=== PATIENT | male | born 2005 | race Caucasian/White ===

== ENCOUNTER 2024-10-11 02:39 | Emergency (ER) | payer MEDICAID ==
[~2024-10-11] VITALS: Ht 167.6 cm; Wt 68.0 kg
[2024-10-11 03:02] VITALS: TEMP 97.7
[2024-10-11] MEDS ORDERED: IBUPROFEN 600 MG TABLET ONE (03:20)
[2024-10-11] MEDS ORDERED: ACETAMINOPHEN ES 500 MG TABLET ONE (03:20)
[2024-10-11] MEDS: ACETAMINOPHEN ES 500 MG TABLET PO ONE (03:26)
[2024-10-11] MEDS: IBUPROFEN 600 MG TABLET PO ONE (03:26)
[2024-10-11] MEDS ORDERED: IBUP-1953 PO (03:31)
[2024-10-11 03:40] VITALS: BP 120/76; O2SAT 100
== END 2024-10-11 03:41 | disposition home or self-care (01) ==
LOC: ER 02:42
DX: M94.0 Chondrocostal junction syndrome [Tietze] (principal)
CPT/HCPCS: 71045-TC

== ENCOUNTER 2025-01-25 22:15 | Emergency (ER) | payer MEDICAID ==
[~2025-01-25] VITALS: Ht 167.6 cm; Wt 72.6 kg
[2025-01-25 22:15] VITALS: BP 120/74; TEMP 98.2
[~2025-01-25 22:15] MED LIST: IBUP-1953 PO
[2025-01-25] MEDS ORDERED: TETRAcaine 5 ML BOTTLE ONE ×2 (23:16→23:43)
[2025-01-25] MEDS ORDERED: FLUORESCEIN SODIUM OPHTH 1 EA STRIP ONE ×2 (23:16→23:43)
[2025-01-25] MEDS: TETRAcaine 5 ML BOTTLE EACHEYE ONE (23:44)
[2025-01-25] MEDS: FLUORESCEIN SODIUM OPHTH 1 EA STRIP OP ONE (23:44)
[2025-01-26] MEDS ORDERED: IBUP-1490 PO (00:06)
[2025-01-26] MEDS ORDERED: CIPR5DRO18 RIGHTEYE (00:06)
[2025-01-26 00:29] VITALS: O2SAT 98
== END 2025-01-26 00:30 | disposition home or self-care (01) ==
LOC: ER 22:32
DX: T15.01XA Foreign body in cornea, right eye, initial encounter (principal); W44.9XXA Unspecified foreign body entering into or through a natural orifice, initial encounter; Y93.89 Activity, other specified; Y92.89 Other specified places as the place of occurrence of the external cause; Y99.8 Other external cause status